=== PATIENT | male | born 1995 | race Caucasian/White ===

== ENCOUNTER 2025-03-09 13:13 | Outpatient (CLI) | payer BC, SELFPAY ==
[2025-03-09 15:45] LABS: Coronavirus 19, PCR Not Detected (NotDetected); Human Rhinovirus Not Detected (NotDetected); Influenza A, PCR Not Detected (NotDetected); Influenza B, PCR Not Detected (NotDetected); Respiratory Syncytial Virus Not Detected (NotDetected)
== END 2025-03-09 23:59 | disposition home or self-care (01) ==
LOC: LAB.DROPOF 16:11
PROVIDERS: PCP Nurse Practitioner; Visit Provider Nurse Practitioner
DX: R50.9 Fever, unspecified (principal)
CPT/HCPCS: 87631

== ENCOUNTER 2025-05-26 09:58 | Outpatient (CLI) | payer BC, SELFPAY ==
[2025-05-26 16:53] LABS: Coronavirus 19, PCR Not Detected (NotDetected); Influenza A, PCR Not Detected (NotDetected); Influenza B, PCR Not Detected (NotDetected)
--- OUTSIDE RECORDS SUMMARY | 2025-05-27 14:50 | XMS_ITS | Clinical Summary ---
Author Organization 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 118 mL 2 Active Additional Information Patient not taking.Reason: Other, Reported on 08/22/2024 meloxicam (MOBIC) 15 mg Oral TabletIndicatio ns:Tendinitis of left rotator cuff Take 1 Tablet by mouth daily. 30 Tablet 2 4 Active Additional Information Patient not taking.Reason: Therapy Completed, Reported on 08/22/2024 Active Problems Problem Noted Date Diagnosed Date Tendinitis of left rotator cuff 07/17/2024 Subcutaneous nodule of abdominal wall 06/05/2022 Assessment & Plan (06/07/2022 9:21 PM EDT): We discussed the differential diagnosis of this nodule . We discussed options including observation, imaging, or surgical exploration. I have recommended ultrasound to evaluate the area. He is agreeable. Will call him with results and discuss further plans at that time. Social History Tobacco Use Types Packs/Day Years Used Date Smoking Tobacco: Never Smokeless Tobacco: Never Sex and Gender Information Value Date Recorded Sex Assigned at Not on file Legal Sex Male 5:57 PM EDT Gender Identity Not on file Sexual Orientation Not on file Obstetrics History Last Filed Vital Signs Vital Sign Reading Time Taken Comments Blood Pressure 126/80 08/22/2024 2:04 PM EST Pulse 84 08/22/2024 2:04 PM EST Temperature 36.9 C (98.4 F) 08/22/2024 2:04 PM EST Respiratory Rate 16 08/22/2024 2:04 PM EST Oxygen Saturation 98% 08/22/2024 2:04 PM EST Inhaled Oxygen Concentration - - Weight 92 kg (202 lb 12.8 oz) 08/22/2024 2:04 PM EST Height 175.3 cm (5' 9 ) 08/22/2024 2:04 PM EST Body Mass Index 29.95 08/22/2024 2:04 PM EST Plan of Treatment Health Maintenance Due Date Last Done Comments Annual Wellness Exam 1999 DTaP/TDaP/Td (1 - Tdap) 2015 Hepatitis B Vaccine (1 of 3 - 19+ 3-dose series) 2015 COVID-19 Vaccine ( - 2023-2 5 season) 2024 Influenza Vaccine (#1) 2025 Meningococcal B Vaccine Aged Out No l onger eligible based on patient's age to complete this topic Pneumococcal Vaccine 0-49 Aged Out No longer eligible based on patient's age to complete this topic Insurance [id number] PPO [employer] PPO * Guarantor: JOELLEN SHELL Account Type Relation to Patient Date of Phone Billing Address [place] [employer] [id number] [id number] [facility] [employer] PPO
== END 2025-05-26 23:59 | disposition home or self-care (01) ==
LOC: LAB.DROPOF 05-27 14:45
PROVIDERS: PCP Nurse Practitioner Family; Visit Provider Nurse Practitioner Family
DX: J06.9 Acute upper respiratory infection, unspecified (principal)
CPT/HCPCS: 87631

== ENCOUNTER 2025-09-14 11:01 | Outpatient (CLI) | payer BC, SELFPAY ==
[2025-09-14 20:34] LABS: Coronavirus 19, PCR Not Detected (NotDetected); Influenza A, PCR Not Detected (NotDetected); Influenza B, PCR Not Detected (NotDetected)
== END 2025-09-14 23:59 ==
LOC: LAB.DROPOF 09-16 11:02
PROVIDERS: Visit Provider Student in an Organized Health Care Education/Training Program
DX: R50.9 Fever, unspecified (principal)
CPT/HCPCS: 87631